=== PATIENT | female | born 1960 | race Caucasian/White ===

== ENCOUNTER → 2024-11-08 11:58 | Outpatient (REF) | payer OTHER, SELFPAY | LOC: RAD 11:58 | PROVIDERS: ATTENDING PHYSICIAN Student in an Organized Health Care Education/Training Program | DX: K59.00 Constipation, unspecified (principal); R11.10 Vomiting, unspecified | CPT/HCPCS: 74018 ==

== ENCOUNTER → 2024-11-21 13:42 | Outpatient (REF) | payer OTHER, SELFPAY | LOC: RAD 13:42 | PROVIDERS: ATTENDING PHYSICIAN Student in an Organized Health Care Education/Training Program | DX: R10.84 Generalized abdominal pain (principal) | CPT/HCPCS: 74177; Q9967 ==

== ENCOUNTER → 2024-11-30 11:55 | Outpatient (REF) | payer OTHER, SELFPAY | LOC: RAD 11:55 | PROVIDERS: ATTENDING PHYSICIAN Student in an Organized Health Care Education/Training Program | DX: K56.1 Intussusception (principal) | CPT/HCPCS: 74177; Q9967 ==

== ENCOUNTER → 2025-03-28 16:44 | Outpatient (REF) | payer OTHER, SELFPAY | LOC: WDC 16:44 | PROVIDERS: ATTENDING PHYSICIAN Student in an Organized Health Care Education/Training Program | DX: Z12.31 Encounter for screening mammogram for malignant neoplasm of breast (principal) | CPT/HCPCS: 77063; 77067 ==